=== PATIENT | male | born 1985 | race Hispanic/Latino ===

== ENCOUNTER 2017-04-10 00:49 | Emergency (ER) | payer MEDICAID, OTHER ==
[2017-04-10] MEDS ORDERED: BENZONATATE 100 MG CAPSULE PO ONE (04:09)
== END 2017-04-10 04:54 | disposition home or self-care (01) ==
LOC: EDH 00:49
DX: F41.1 Generalized anxiety disorder (principal); J20.9 Acute bronchitis, unspecified; G47.00 Insomnia, unspecified
CPT/HCPCS: 71046; 87804

== ENCOUNTER 2017-04-20 23:46 | Emergency (ER) | payer OTHER ==
[2017-04-21] MEDS ORDERED: SODIUM CHLORIDE 0.9% 1000ML 1,000 ML IV ONE (00:19)
[2017-04-21 00:22] LABS: BASOPHILS % (AUTO) 0.8 % (0.0-5.0); EOSINOPHILS % (AUTO) 1.8 % (0.0-8.0); HEMATOCRIT 42.1 % (42-54); LYMPHOCYTES % (AUTO) 32.9 % (21.0-51.0); MEAN CORPUSCULAR HGB CONC 33.5 g/dL (32.0-36.0); MEAN CORPUSCULAR VOLUME 80.7 fL (79-99); MONOCYTES % (AUTO) 9.5 % (3.0-13.0); PLATELET COUNT (AUTO) 336 K/uL (130-400); RED BLOOD CELL COUNT(AUTO) 5.21 MIL/uL (4.50-6.20); RED CELL DISTRIBUTION WIDTH 14.3 % (11.0-15.5); WHITE BLOOD COUNT (AUTO) 8.7 K/uL (4.8-10.8)
[2017-04-21 00:35] LABS: POTASSIUM 4.1 mmol/L (3.5-5.1)
[2017-04-21 00:38] LABS: INR 1.03 (0.85-1.15); PARTIAL THROMBOPLASTIN TIME 24.7 SEC (26.3-35.5); PROTHROMBIN TIME 10.8 SEC (9.6-11.6)
[2017-04-21 00:40] LABS: ALBUMIN 3.9 g/dL (3.5-5.0); BILIRUBIN,TOTAL 0.1 mg/dL (0.2-1.0); TOTAL PROTEIN, SERUM 8.2 g/dL (6.0-8.3)
== END 2017-04-21 01:11 | disposition home or self-care (01) ==
LOC: EDH 23:46
DX: K92.2 Gastrointestinal hemorrhage, unspecified (principal); K59.00 Constipation, unspecified
CPT/HCPCS: 36415; 74018; 80053; 85025; 85610; 85730; 86850; 86900; 86901; 96360; 99285; J7030